=== PATIENT | female | born 1965 | race Caucasian/White ===

== ENCOUNTER 2017-01-09 22:24 | Emergency (ER) | payer MEDICARE, OTHER ==
[~2017-01-09] VITALS: Ht 165.1 cm; Wt 65.9 kg
[~2017-01-09 22:24] MED LIST: BACL10TA PO
[2017-01-09] MEDS ORDERED: KETOROLAC TROMETHAMINE 30 MG/ML VIAL IM ONE (23:15)
[2017-01-09 23:38] VITALS: BP 158/82
== END 2017-01-09 23:39 | disposition home or self-care (01) ==
LOC: EMS 22:26
DX: K02.9 Dental caries, unspecified (principal); M25.551 Pain in right hip; G89.29 Other chronic pain; F12.90 Cannabis use, unspecified, uncomplicated; F19.90 Other psychoactive substance use, unspecified, uncomplicated; F17.210 Nicotine dependence, cigarettes, uncomplicated; Z88.6 Allergy status to analgesic agent
CPT/HCPCS: 96372; 99283; J1885

== ENCOUNTER 2017-06-25 13:53 | Inpatient (IN) | payer MEDICARE, MEDICAID ==
[~2017-06-25] VITALS: Ht 162.6 cm; Wt 63.8 kg
[2017-06-25 14:51] LABS: BASOPHILS # (AUTO) 0.08 K/uL (0.00-0.20); BASOPHILS % (AUTO) 0.8 % (0.0-2.0); EOSINOPHILS # (AUTO) 0.12 K/uL (0.00-0.70); EOSINOPHILS % (AUTO) 1.11 % (1.0-6.0); HEMATOCRIT 42.1 % (36-46); HEMOGLOBIN 13.7 g/dL (12.0-16.0); LYMPHOCYTES # (AUTO) 3.5 K/uL (1.0-4.8); LYMPHOCYTES % (AUTO) 33.1 % (22.0-44.0); MEAN CORPUSCULAR HEMOGLOBIN 29.4 pg (26.0-34.0); MEAN CORPUSCULAR HGB CONC 32.6 G/dL (31.0-37.0); MEAN CORPUSCULAR VOLUME 90 fL (80-100); MONOCYTES # (AUTO) 0.8 K/uL (0.1-1.0); MONOCYTES % (AUTO) 7.7 % (2.0-9.0); NEUTROPHILS % (AUTO) 57.3 % (40.0-70.0); PLATELET COUNT (AUTO) 443 K/uL (150-450); RED BLOOD CELL COUNT(AUTO) 4.68 MIL/uL (4.00-5.20); RED CELL DISTRIBUTION WIDTH 15.3 % (11.5-14.5); WHITE BLOOD COUNT (AUTO) 10.5 K/uL (4.5-11.0)
[2017-06-25 14:57] LABS: ANION GAP 11 mmol/L (8-16); CALCIUM, TOTAL 8.9 mg/dL (8.8-10.5); CARBON DIOXIDE 29 mmol/L (22-29); CHLORIDE 103 mmol/L (98-107); CREATININE 1.01 mg/dL (0.60-1.30); GLOMERULAR FILTR. RATE CALC 58 mL/min (>60); POTASSIUM 3.6 mmol/L (3.5-5.1); SODIUM SERUM 143 mmol/L (136-145); UREA NITROGEN, BLOOD 5 mg/dL (7-18)
[2017-06-25 15:03] LABS: ALANINE AMINOTRANSFERASE 19 U/L (12-78); ALBUMIN 3.1 g/dL (3.4-5.0); ASPARTATE AMINOTRANSFERASE 27 U/L (15-37); BILIRUBIN,TOTAL 0.4 mg/dL (0.1-1.0)
[2017-06-25] MEDS ORDERED: DiphenhydrAMINE HCL 50 MG/ML VIAL IM ONE (16:00)
[2017-06-25] MEDS ORDERED: LORazepam 2 MG/ML VIAL IM ONE (16:00)
[2017-06-25] MEDS ORDERED: HALOPERIDOL LACTATE 5 MG/ML VIAL IM ONE (16:00)
[2017-06-25] MEDS ORDERED: LORazepam 2 MG TABLET PO PRN (16:30)
[2017-06-25] MEDS ORDERED: ZOLPIDEM TARTRATE 10 MG TABLET PO PRN (16:30)
[2017-06-25] MEDS ORDERED: HALOPERIDOL 5 MG TABLET PO PRN (16:30)
[2017-06-25 19:05] VITALS: BP 147/95
[2017-06-26 07:45] LABS: THYROID STIMULATING HORMONE 0.66 uIU/mL (0.36-3.74)
[2017-06-26 08:04] VITALS: BP 146/80
[2017-06-26] MEDS ORDERED: PETROLATUM,WHITE 71 GM JELLY TP PRN (08:30)
[2017-06-26] MEDS ORDERED: BACITRACIN 28.4 GM OINTMENT TP PRN (08:30)
[2017-06-26] MEDS ORDERED: ACETAMINOPHEN 325 MG TABLET PO PRN (08:30)
[2017-06-26] MEDS ORDERED: ONDANSETRON HCL 4 MG TABLET PO PRN (08:30)
[2017-06-26] MEDS ORDERED: MAG HYDROX/AL HYDROX/SIMETH ES 30 ML SUSPENSION UDCUP PO PRN (08:30)
[2017-06-26] MEDS ORDERED: MAGNESIUM HYDROXIDE SUSPENSION 30 ML UDCUP PO PRN (08:30)
[2017-06-26] MEDS ORDERED: LOPERAMIDE HCL 2 MG CAPSULE PO PRN (08:30)
[2017-06-26] MEDS ORDERED: ALBUTEROL SULFATE HFA 90 MCG/PUFF 8 GM INHALER IH PRN (08:30)
[2017-06-26] MEDS ORDERED: BENZOCAINE/MENTHOL LOZENGE [8 LOZENGES/PACKET] MM PRN (08:45)
[2017-06-26 09:54] VITALS: BP 146/80
[2017-06-26 16:30] VITALS: BP 132/98
[2017-06-27] MEDS: RisperiDONE 2 MG TABLET PO SCH ×2 (09:00→17:00)
[2017-06-28] MEDS: RisperiDONE 2 MG TABLET PO SCH ×2 (07:59→16:27)
[2017-06-28] MEDS: CloNIDine HCL 0.1 MG TABLET PO PRN ×3 (07:59→16:09)
[2017-06-28 08:19] VITALS: BP 151/114
[2017-06-28 09:14] LABS: BASOPHILS # (AUTO) 0.03 K/uL (0.00-0.20); BASOPHILS % (AUTO) 0.3 % (0.0-2.0); EOSINOPHILS # (AUTO) 0.09 K/uL (0.00-0.70); EOSINOPHILS % (AUTO) 0.79 % (1.0-6.0); HEMATOCRIT 44.9 % (36-46); HEMOGLOBIN 14.5 g/dL (12.0-16.0); LYMPHOCYTES # (AUTO) 2.3 K/uL (1.0-4.8); LYMPHOCYTES % (AUTO) 19.4 % (22.0-44.0); MEAN CORPUSCULAR HEMOGLOBIN 28.8 pg (26.0-34.0); MEAN CORPUSCULAR HGB CONC 32.3 G/dL (31.0-37.0); MEAN CORPUSCULAR VOLUME 89 fL (80-100); MONOCYTES # (AUTO) 0.6 K/uL (0.1-1.0); NEUTROPHILS # (AUTO) 8.7 K/uL (1.8-7.7); NEUTROPHILS % (AUTO) 74.6 % (40.0-70.0); PLATELET COUNT (AUTO) 485 K/uL (150-450); RED BLOOD CELL COUNT(AUTO) 5.03 MIL/uL (4.00-5.20); RED CELL DISTRIBUTION WIDTH 15.8 % (11.5-14.5); WHITE BLOOD COUNT (AUTO) 11.6 K/uL (4.5-11.0)
[2017-06-28] MEDS: NICOTINE 21 MG/24 HOUR PATCH TD SCH (11:17)
[2017-06-28 11:23] VITALS: BP 156/119
[2017-06-28] MEDS: DICLOFENAC SODIUM 1% 100 GM GEL [2GM] TP PRN (11:34)
[2017-06-28 16:27] VITALS: BP 146/120
[2017-06-28 17:04] VITALS: BP 126/83
[2017-06-29] MEDS: RisperiDONE 2 MG TABLET PO SCH ×2 (08:25→17:00)
[2017-06-29] MEDS: NICOTINE 21 MG/24 HOUR PATCH TD SCH (08:25)
[2017-06-29 08:30] VITALS: BP 128/94
[2017-06-29] MEDS ORDERED: LISINOPRIL 5 MG TABLET PO SCH (13:00)
[2017-06-29] MEDS: DICLOFENAC SODIUM 1% 100 GM GEL [2GM] TP PRN (13:31)
[2017-06-29 16:12] VITALS: BP 145/82
[2017-06-29] MEDS: AMITRIPTYLINE HCL 25 MG TABLET PO SCH (21:26)
[2017-06-30 08:30] VITALS: BP 148/89
[2017-06-30] MEDS: NICOTINE 21 MG/24 HOUR PATCH TD SCH (08:36)
[2017-06-30] MEDS ORDERED: LISINOPRIL 10 MG TABLET PO SCH (09:00)
[2017-06-30] MEDS: RisperiDONE 2 MG TABLET PO SCH ×2 (09:00→16:12)
[2017-06-30] MEDS ORDERED: LISINOPRIL 5 MG TABLET PO ONE (09:00)
[2017-06-30 16:41] VITALS: BP 151/99
[2017-06-30] MEDS: DICLOFENAC SODIUM 1% 100 GM GEL [2GM] TP PRN (18:45)
[2017-06-30] MEDS: AMITRIPTYLINE HCL 25 MG TABLET PO SCH (20:30)
[2017-07-01 08:04] VITALS: BP 125/96
[2017-07-01] MEDS: LISINOPRIL 10 MG TABLET PO SCH (08:15)
[2017-07-01] MEDS: NICOTINE 21 MG/24 HOUR PATCH TD SCH (08:17)
[2017-07-01] MEDS: RisperiDONE 2 MG TABLET PO SCH ×2 (08:18→17:00)
[2017-07-01] MEDS ORDERED: HALOPERIDOL LACTATE 5 MG/ML VIAL IM ONE (10:45)
[2017-07-01] MEDS ORDERED: DiphenhydrAMINE HCL 50 MG/ML VIAL IM ONE (10:45)
[2017-07-01] MEDS ORDERED: LORazepam 2 MG/ML VIAL IM ONE (10:45)
[2017-07-01] MEDS: AMITRIPTYLINE HCL 25 MG TABLET PO SCH (21:00)
[2017-07-02] MEDS: IBUPROFEN 600 MG TABLET PO PRN ×2 (00:46→09:54)
[2017-07-02] MEDS: AMITRIPTYLINE HCL 25 MG TABLET PO SCH (00:47)
[2017-07-02] MEDS: RisperiDONE 2 MG TABLET PO SCH ×2 (09:00→09:10)
[2017-07-02] MEDS: LISINOPRIL 10 MG TABLET PO SCH (09:10)
[2017-07-02] MEDS: NICOTINE 21 MG/24 HOUR PATCH TD SCH (09:10)
[2017-07-02 10:03] VITALS: BP 123/88
[2017-07-02 11:03] VITALS: BP 149/91
[2017-07-02] MEDS ORDERED: AMIT25TA9 PO (12:39)
[2017-07-02] MEDS ORDERED: RISP2 PO (12:39)
[2017-07-02] MEDS ORDERED: LISI-661 PO (12:48)
[2017-07-02 13:08] VITALS: BP 149/91
== END 2017-07-02 15:00 | disposition home or self-care (01) | DRG 885 ==
LOC: EEVIPCON 13:55 → EMS 13:55 → 3EC 17:46
PROVIDERS: ADMIT Psychiatry & Neurology Psychiatry; ATTEND Psychiatry & Neurology Psychiatry
DX: F20.0 Paranoid schizophrenia (principal); F15.20 Other stimulant dependence, uncomplicated; I10 Essential (primary) hypertension; F17.210 Nicotine dependence, cigarettes, uncomplicated; N93.8 Other specified abnormal uterine and vaginal bleeding; F12.20 Cannabis dependence, uncomplicated; J44.9 Chronic obstructive pulmonary disease, unspecified; M54.5 Low back pain; Z59.0 Homelessness; Z88.8 Allergy status to other drugs, medicaments and biological substances; Z71.6 Tobacco abuse counseling
CPT/HCPCS: 84436; 84443; 96372; 99285; G0480; J1200; J1630; J2060; J3535

== ENCOUNTER 2017-10-07 10:33 | Emergency (ER) | payer MEDICARE, OTHER ==
[~2017-10-07] VITALS: Ht 162.6 cm; Wt 68.2 kg
[~2017-10-07 10:33] MED LIST changes: +AMIT25TA9 PO; -BACL10TA PO; +LISI-661 PO; +RISP2 PO
[2017-10-07 10:57] LABS: BASOPHILS % (AUTO) 0.4 % (0.0-2.0); EOSINOPHILS % (AUTO) 1.1 % (1.0-6.0); HEMATOCRIT 43.7 % (36-46); HEMOGLOBIN 14.8 g/dL (12.0-16.0); LYMPHOCYTES # (AUTO) 3.6 K/uL (1.0-4.8); LYMPHOCYTES % (AUTO) 25.7 % (22.0-44.0); MEAN CORPUSCULAR HEMOGLOBIN 30.4 pg (26.0-34.0); MEAN CORPUSCULAR HGB CONC 33.9 G/dL (31.0-37.0); MEAN CORPUSCULAR VOLUME 89 fL (80-100); NEUTROPHILS # (AUTO) 9.2 K/uL (1.8-7.7); NEUTROPHILS % (AUTO) 65.8 % (40.0-70.0); PLATELET COUNT (AUTO) 543 K/uL (150-450); RED BLOOD CELL COUNT(AUTO) 4.88 MIL/uL (4.00-5.20); RED CELL DISTRIBUTION WIDTH 15.4 % (11.5-14.5)
[2017-10-07 11:07] LABS: ANION GAP 8 mmol/L (8-16); CALCIUM, TOTAL 9.3 mg/dL (8.8-10.5); CARBON DIOXIDE 28 mmol/L (22-29); CHLORIDE 102 mmol/L (98-107); CREATININE 1.14 mg/dL (0.60-1.30); GLOMERULAR FILTR. RATE CALC 50 mL/min (>60); POTASSIUM 3.4 mmol/L (3.5-5.1); SODIUM SERUM 138 mmol/L (136-145); UREA NITROGEN, BLOOD 12 mg/dL (7-18)
[2017-10-07 11:14] LABS: ALANINE AMINOTRANSFERASE 21 U/L (12-78); ALBUMIN 3.7 g/dL (3.4-5.0); ASPARTATE AMINOTRANSFERASE 15 U/L (15-37); BILIRUBIN,TOTAL 0.6 mg/dL (0.1-1.0); TOTAL PROTEIN, SERUM 7.9 g/dL (6.4-8.2)
[2017-10-07 14:33] VITALS: BP 139/81
== END 2017-10-07 14:36 | disposition home or self-care (01) ==
LOC: EMS 10:34
DX: M25.511 Pain in right shoulder (principal); F15.10 Other stimulant abuse, uncomplicated; F31.9 Bipolar disorder, unspecified; F17.210 Nicotine dependence, cigarettes, uncomplicated; F12.90 Cannabis use, unspecified, uncomplicated; F19.90 Other psychoactive substance use, unspecified, uncomplicated; Z88.8 Allergy status to other drugs, medicaments and biological substances; Z59.0 Homelessness
CPT/HCPCS: 36415; 80053; 80307; 85025; 99285; G0480

== ENCOUNTER 2024-09-01 11:59 | Inpatient (IN) | payer MEDICAID, MEDICARE, OTHER ==
[~2024-09-01] VITALS: Ht 162.6 cm; Wt 55.8 kg
[~2024-09-01 11:59] MED LIST changes: +AMIT25TA10 PO; -AMIT25TA9 PO; -LISI-661 PO; +LISI-893 PO; -RISP2 PO; +RISP2TAB45 PO
[2024-09-01 14:08] LABS: BASOPHILS % (AUTO) 0.5 % (0.0-2.0); EOSINOPHILS % (AUTO) 0.6 % (1.0-6.0); HEMATOCRIT 41.6 % (36-46); HEMOGLOBIN 13.7 g/dL (12.0-16.0); LYMPHOCYTES # (AUTO) 2.2 K/uL (1.0-4.8); LYMPHOCYTES % (AUTO) 15.8 % (22.0-44.0); MEAN CORPUSCULAR HGB CONC 32.8 G/dL (31.0-37.0); MEAN CORPUSCULAR VOLUME 88 fL (80-100); MONOCYTES # (AUTO) 0.9 K/uL (0.1-1.0); MONOCYTES % (AUTO) 6.7 % (2.0-9.0); NEUTROPHILS # (AUTO) 10.6 K/uL (1.8-7.7); NEUTROPHILS % (AUTO) 76.4 % (40.0-70.0); PLATELET COUNT (AUTO) 378 K/uL (150-450); RED BLOOD CELL COUNT(AUTO) 4.72 MIL/uL (4.00-5.20); RED CELL DISTRIBUTION WIDTH 16.3 % (11.5-14.5); WHITE BLOOD COUNT (AUTO) 13.9 K/uL (4.5-11.0)
[2024-09-01 14:09] LABS: COVID AG,FIA SOURCE NASAL SWAB
[2024-09-01] MEDS ORDERED: LORazepam 2 MG TABLET PO PRN (14:15)
[2024-09-01] MEDS ORDERED: HALOPERIDOL 5 MG TABLET PO PRN (14:15)
[2024-09-01 14:16] LABS: ANION GAP 11 mmol/L (8-16); CALCIUM, TOTAL 9.3 mg/dL (8.8-10.5); CARBON DIOXIDE 24 mmol/L (22-29); CHLORIDE 100 mmol/L (98-107); CREATININE 1.73 mg/dL (0.60-1.30); GLOMERULAR FILTR. RATE CALC 30 mL/min (>60); GLUCOSE,RANDOM 98 mg/dL (70-110); POTASSIUM 3.7 mmol/L (3.5-5.1); SODIUM SERUM 135 mmol/L (136-145); UREA NITROGEN, BLOOD 36 mg/dL (7-18)
[2024-09-01 14:19] LABS: ALCOHOL, BLOOD (SERUM) < 3 mg/dL (0-10)
[2024-09-01 14:27] LABS: SARS-COV2 (COVID) ANTIGEN,FIA Negative (Negative)
[2024-09-01] MEDS ORDERED: FERR325T27 PO (14:35)
[2024-09-01] MEDS ORDERED: METO-325 PO (14:35)
[2024-09-01] MEDS ORDERED: NIFE-46 PO (14:35)
[2024-09-01 16:37] VITALS: O2SAT 97
[2024-09-01 18:00] VITALS: BP 199/110; PULSE 98; RESP 18; TEMP 97; O2SAT 98
[2024-09-01] MEDS: NIFEdipine 60 MG ER TABLET PO SCH (18:00)
[2024-09-01] MEDS: METOPROLOL SUCCINATE 50 MG ER TABLET PO SCH (18:00)
[2024-09-01] MEDS: LISINOPRIL 10 MG TABLET PO SCH (18:55)
[2024-09-01] MEDS ORDERED: BENZOCAINE/MENTHOL LOZENGE PO PRN (19:00)
[2024-09-01] MEDS ORDERED: MAG HYDROX/ALUMINUM HYD/SIMETH ES 30 ML SUSPENSION UDCUP PO PRN (19:00)
[2024-09-01] MEDS ORDERED: PETROLATUM,WHITE 28 GM JELLY TP PRN (19:00)
[2024-09-01] MEDS ORDERED: OMEPRAZOLE 20 MG CAPSULE PO PRN (19:00)
[2024-09-01] MEDS ORDERED: MAGNESIUM HYDROXIDE SUSPENSION 30 ML UDCUP PO PRN (19:00)
[2024-09-01] MEDS ORDERED: BACITRACIN 28 GM OINTMENT TP PRN (19:00)
[2024-09-01] MEDS ORDERED: ACETAMINOPHEN 325 MG TABLET PO PRN (19:00)
[2024-09-01] MEDS ORDERED: ALBUTEROL SULFATE HFA 90 MCG/PUFF 8 GM INHALER IH PRN (19:00)
[2024-09-01] MEDS ORDERED: ONDANSETRON 4 MG TABLET PO PRN (19:00)
[2024-09-01] MEDS ORDERED: LOPERAMIDE HCL 2 MG CAPSULE PO PRN (19:00)
[2024-09-01] MEDS: IBUPROFEN 600 MG TABLET PO PRN (19:13)
[2024-09-01] MEDS: CloNIDine HCL 0.1 MG TABLET PO PRN (19:30)
[2024-09-01 20:13] VITALS: RESP 17
[2024-09-01 20:17] VITALS: BP 143/97; PULSE 94; RESP 18; TEMP 97.2; O2SAT 98
[2024-09-01 21:01] VITALS: BP 143/97; PULSE 95; RESP 18; TEMP 97.2; O2SAT 96
[2024-09-02 08:12] VITALS: BP 131/80; PULSE 82; RESP 16; TEMP 98; O2SAT 98
[2024-09-02 14:19] VITALS: BP 102/64; PULSE 67
[2024-09-02] MEDS: RisperiDONE 2 MG TABLET PO SCH (17:18)
[2024-09-02 20:28] VITALS: BP 114/68; PULSE 62; RESP 17; TEMP 98.4; O2SAT 96
[2024-09-03] MEDS: NICOTINE 7 MG/24 HOUR PATCH TD SCH (08:07)
[2024-09-03 08:54] VITALS: BP 125/72; PULSE 68; RESP 16; TEMP 96.6; O2SAT 95
[2024-09-03 09:08] LABS: BASOPHILS % (AUTO) 0.3 % (0.0-2.0); EOSINOPHILS % (AUTO) 6.2 % (1.0-6.0); HEMATOCRIT 37.7 % (36-46); HEMOGLOBIN 12.3 g/dL (12.0-16.0); LYMPHOCYTES # (AUTO) 1.8 K/uL (1.0-4.8); LYMPHOCYTES % (AUTO) 22.5 % (22.0-44.0); MEAN CORPUSCULAR HEMOGLOBIN 29.2 pg (26.0-34.0); MEAN CORPUSCULAR HGB CONC 32.8 G/dL (31.0-37.0); MEAN CORPUSCULAR VOLUME 89 fL (80-100); MONOCYTES # (AUTO) 0.6 K/uL (0.1-1.0); MONOCYTES % (AUTO) 7.2 % (2.0-9.0); NEUTROPHILS # (AUTO) 5.1 K/uL (1.8-7.7); NEUTROPHILS % (AUTO) 63.8 % (40.0-70.0); PLATELET COUNT (AUTO) 359 K/uL (150-450); RED BLOOD CELL COUNT(AUTO) 4.22 MIL/uL (4.00-5.20); RED CELL DISTRIBUTION WIDTH 16.5 % (11.5-14.5); WHITE BLOOD COUNT (AUTO) 7.9 K/uL (4.5-11.0)
[2024-09-03 09:30] LABS: ALBUMIN 2.5 g/dL (3.4-5.0); BILIRUBIN,TOTAL 0.5 mg/dL (0.1-1.0); CALCIUM, TOTAL 8.7 mg/dL (8.8-10.5); CREATININE 1.96 mg/dL (0.60-1.30); POTASSIUM 3.9 mmol/L (3.5-5.1); TOTAL PROTEIN, SERUM 6.6 g/dL (6.4-8.2)
[2024-09-03] MEDS: DOCUSATE SODIUM 100 MG CAPSULE PO PRN (11:19)
[2024-09-03 20:20] VITALS: BP 155/93; PULSE 84; RESP 16; TEMP 97.3; O2SAT 96
[2024-09-04 09:41] LABS: CHOL/HDL RATIO 2.7 (3.9-5.7); FREE T4 (FREE THYROXINE) 1.29 ng/dL (0.76-1.46); THYROID STIMULATING HORMONE 1.16 uIU/mL (0.36-3.74)
[2024-09-04 10:15] VITALS: BP 159/83; PULSE 60; RESP 18; TEMP 96.8; O2SAT 99
[2024-09-04 22:53] VITALS: RESP 18
[2024-09-05] VITALS (8 sets, daily range): BP systolic 147–184; BP diastolic 90–106; PULSE 65–89; RESP 17–18; TEMP 97.4–98.4; O2SAT 97
[2024-09-05 09:07] LABS: CALCIUM, TOTAL 8.8 mg/dL (8.8-10.5); CHOL/HDL RATIO 3.4 (3.9-5.7); CREATININE 1.43 mg/dL (0.60-1.30); FREE T4 (FREE THYROXINE) 1.13 ng/dL (0.76-1.46); THYROID STIMULATING HORMONE 0.8 uIU/mL (0.36-3.74)
[2024-09-05 09:16] LABS: POTASSIUM 4.3 mmol/L (3.5-5.1)
[2024-09-06 08:26] VITALS: BP 143/98; PULSE 66; RESP 16; TEMP 96.9; O2SAT 98
[2024-09-06 11:22] LABS: CALCIUM, TOTAL 9.7 mg/dL (8.8-10.5); CREATININE 1.3 mg/dL (0.60-1.30); POTASSIUM 4.3 mmol/L (3.5-5.1)
[2024-09-06 21:07] VITALS: BP 133/92; PULSE 73; RESP 18; TEMP 97.3; O2SAT 96
[2024-09-07 10:36] VITALS: BP 151/97; PULSE 67; RESP 18; TEMP 97.4; O2SAT 96
[2024-09-07 13:00] VITALS: BP 129/76; RESP 18; O2SAT 97
[2024-09-07] MEDS: ZOLPIDEM TARTRATE 10 MG TABLET PO PRN (20:10)
[2024-09-07 20:32] VITALS: BP 149/90; PULSE 74; RESP 18; TEMP 96.1; O2SAT 98
[2024-09-08 08:40] VITALS: BP 144/96; PULSE 82; RESP 16; TEMP 97.6; O2SAT 96
[2024-09-08 22:45] VITALS: RESP 18
[2024-09-08 23:22] VITALS: BP 144/84; PULSE 68; RESP 16; TEMP 97.2; O2SAT 98
[2024-09-09 08:20] VITALS: BP 134/87; PULSE 91; RESP 16; TEMP 96.9; O2SAT 97
[2024-09-09 23:02] VITALS: BP 155/91; PULSE 72; RESP 16; TEMP 96.7; O2SAT 95
[2024-09-10 08:40] VITALS: BP 130/84; PULSE 78; RESP 17; TEMP 97; O2SAT 98
== END 2024-09-10 22:31 | disposition short-term general hospital (02) | DRG 750 ==
LOC: EMS 11:59 → B3A 15:27 → UNDOADMIN 15:40 → B3A 18:18
PROVIDERS: ADMIT Psychiatry & Neurology Psychiatry; ATTEND Psychiatry & Neurology Psychiatry
DX: F20.9 Schizophrenia, unspecified (principal); F12.10 Cannabis abuse, uncomplicated; F15.10 Other stimulant abuse, uncomplicated; F17.200 Nicotine dependence, unspecified, uncomplicated; Z20.822 Contact with and (suspected) exposure to COVID-19; J44.9 Chronic obstructive pulmonary disease, unspecified; M54.50 Low back pain, unspecified; I10 Essential (primary) hypertension; Z88.8 Allergy status to other drugs, medicaments and biological substances
CPT/HCPCS: 71045; 80048; 80053; 80061; 82728; 84439; 84443; 85025; 99285; G0480; 36415-L1; 36415-TC

== ENCOUNTER 2024-09-10 16:08 | Inpatient (IN) | payer MEDICAID, OTHER ==
[~2024-09-10] VITALS: Ht 162.6 cm; Wt 55.8 kg
[~2024-09-10 16:08] MED LIST changes: +FERR325T27 PO; +METO-325 PO; +NIFE-46 PO
[2024-09-10 19:11] LABS: BASOPHILS % (AUTO) 0.8 % (0.0-2.0); EOSINOPHILS % (AUTO) 3.5 % (1.0-6.0); HEMATOCRIT 43.7 % (36-46); HEMOGLOBIN 14.4 g/dL (12.0-16.0); LYMPHOCYTES # (AUTO) 2.8 K/uL (1.0-4.8); LYMPHOCYTES % (AUTO) 27.5 % (22.0-44.0); MEAN CORPUSCULAR HEMOGLOBIN 29.3 pg (26.0-34.0); MEAN CORPUSCULAR HGB CONC 32.9 G/dL (31.0-37.0); MEAN CORPUSCULAR VOLUME 89 fL (80-100); MONOCYTES # (AUTO) 0.8 K/uL (0.1-1.0); MONOCYTES % (AUTO) 7.8 % (2.0-9.0); NEUTROPHILS # (AUTO) 6.2 K/uL (1.8-7.7); NEUTROPHILS % (AUTO) 60.4 % (40.0-70.0); PLATELET COUNT (AUTO) 461 K/uL (150-450); RED CELL DISTRIBUTION WIDTH 16.6 % (11.5-14.5); WHITE BLOOD COUNT (AUTO) 10.3 K/uL (4.5-11.0)
[2024-09-10 19:30] LABS: CALCIUM, TOTAL 9.2 mg/dL (8.8-10.5); CREATININE 1.63 mg/dL (0.60-1.30); POTASSIUM 3.9 mmol/L (3.5-5.1)
[2024-09-10 19:45] LABS: TROPONIN I-HIGH SENSITIVITY 8 ng/L (<51)
[2024-09-10] MEDS: FLUCONAZOLE 150 MG TABLET PO ONE (21:02)
[2024-09-10] MEDS: NYSTATIN 500,000 UNITS/5 ML SUSPENSION UDCUP PO ONE (21:02)
[2024-09-10] MEDS ORDERED: BISACODYL 10 MG RECTAL RECTAL SUPPOSITORY PR PRN (22:00)
[2024-09-10] MEDS ORDERED: ONDANSETRON HCL 4 MG/2 ML VIAL IVP PRN (22:00)
[2024-09-10] MEDS ORDERED: ACETAMINOPHEN 325 MG TABLET PO PRN (22:00)
[2024-09-10] MEDS ORDERED: MORPHINE SULFATE 2 MG/ML SYRINGE IVP PRN (22:00)
[2024-09-10] MEDS: SODIUM CHLORIDE 0.9% 1,000 ML IV ONE (23:04)
[2024-09-10] MEDS: HEPARIN SODIUM,PORCINE 5,000 UNITS/ML VIAL SQ SCH (23:05)
[2024-09-11 01:07] VITALS: BP 109/60; PULSE 69; RESP 18; TEMP 97.9; O2SAT 96
[2024-09-11 04:40] VITALS: BP 112/66; PULSE 74; RESP 18; TEMP 98; O2SAT 96
[2024-09-11 07:51] VITALS: BP 113/66; PULSE 68; RESP 18; TEMP 98.1; O2SAT 92
[2024-09-11] MEDS: PANTOPRAZOLE SODIUM 40 MG DR TABLET PO SCH (08:36)
[2024-09-11] MEDS: DOCUSATE SODIUM 100 MG CAPSULE PO SCH (08:36)
[2024-09-11] MEDS: RisperiDONE 2 MG TABLET PO SCH (08:37)
[2024-09-11] MEDS: METOPROLOL SUCCINATE 50 MG ER TABLET PO SCH (09:00)
[2024-09-11] MEDS: NIFEdipine 60 MG ER TABLET PO SCH (09:00)
[2024-09-11 09:23] LABS: BASOPHILS % (AUTO) 0.7 % (0.0-2.0); EOSINOPHILS % (AUTO) 5.1 % (1.0-6.0); HEMATOCRIT 39.4 % (36-46); LYMPHOCYTES # (AUTO) 1.8 K/uL (1.0-4.8); LYMPHOCYTES % (AUTO) 23.5 % (22.0-44.0); MEAN CORPUSCULAR HEMOGLOBIN 29.3 pg (26.0-34.0); MEAN CORPUSCULAR HGB CONC 33.1 G/dL (31.0-37.0); MEAN CORPUSCULAR VOLUME 89 fL (80-100); MONOCYTES # (AUTO) 0.6 K/uL (0.1-1.0); MONOCYTES % (AUTO) 8.2 % (2.0-9.0); NEUTROPHILS # (AUTO) 4.9 K/uL (1.8-7.7); NEUTROPHILS % (AUTO) 62.5 % (40.0-70.0); PLATELET COUNT (AUTO) 409 K/uL (150-450); RED BLOOD CELL COUNT(AUTO) 4.44 MIL/uL (4.00-5.20); RED CELL DISTRIBUTION WIDTH 16.2 % (11.5-14.5); WHITE BLOOD COUNT (AUTO) 7.8 K/uL (4.5-11.0)
[2024-09-11 09:31] LABS: CREATININE 1.34 mg/dL (0.60-1.30); POTASSIUM 4.1 mmol/L (3.5-5.1)
[2024-09-11 15:13] VITALS: BP 126/78; PULSE 74; RESP 18; TEMP 98.6; O2SAT 97
[2024-09-11] MEDS: MAALOX/LIDOCAINE/NYSTATIN SUSP 5 ML ORAL.SYG PO SCH (16:18)
[2024-09-11 19:10] VITALS: BP 128/88; PULSE 84; RESP 18; TEMP 98.4; O2SAT 95
[2024-09-12 04:37] VITALS: BP 138/90; PULSE 70; RESP 18; TEMP 98; O2SAT 95
[2024-09-12 07:06] VITALS: BP 134/88; PULSE 74; RESP 18; TEMP 98.2; O2SAT 96
[2024-09-12 10:56] LABS: BASOPHILS % (AUTO) 0.7 % (0.0-2.0); EOSINOPHILS % (AUTO) 4.9 % (1.0-6.0); HEMATOCRIT 38.2 % (36-46); HEMOGLOBIN 12.4 g/dL (12.0-16.0); LYMPHOCYTES # (AUTO) 2.1 K/uL (1.0-4.8); LYMPHOCYTES % (AUTO) 26.3 % (22.0-44.0); MEAN CORPUSCULAR HEMOGLOBIN 28.8 pg (26.0-34.0); MEAN CORPUSCULAR HGB CONC 32.5 G/dL (31.0-37.0); MEAN CORPUSCULAR VOLUME 89 fL (80-100); MONOCYTES # (AUTO) 0.5 K/uL (0.1-1.0); MONOCYTES % (AUTO) 6.6 % (2.0-9.0); NEUTROPHILS % (AUTO) 61.5 % (40.0-70.0); PLATELET COUNT (AUTO) 372 K/uL (150-450); RED BLOOD CELL COUNT(AUTO) 4.31 MIL/uL (4.00-5.20); RED CELL DISTRIBUTION WIDTH 16.4 % (11.5-14.5); WHITE BLOOD COUNT (AUTO) 8.1 K/uL (4.5-11.0)
[2024-09-12 11:05] LABS: CALCIUM, TOTAL 8.8 mg/dL (8.8-10.5); CREATININE 1.47 mg/dL (0.60-1.30); POTASSIUM 4.3 mmol/L (3.5-5.1)
[2024-09-12] MEDS: DEXTROSE 5%-0.45% SODIUM CHL 1,000 ML IV ONE (13:57)
[2024-09-12 15:18] VITALS: BP 107/69; PULSE 85; RESP 18; TEMP 97.5; O2SAT 95
[2024-09-12 20:01] VITALS: BP 133/90; PULSE 77; RESP 20; TEMP 98.2; O2SAT 95
[2024-09-13 05:22] VITALS: BP 136/89; PULSE 74; RESP 20; TEMP 98.1; O2SAT 93
[2024-09-13 07:18] LABS: BASOPHILS % (AUTO) 0.6 % (0.0-2.0); EOSINOPHILS % (AUTO) 3.9 % (1.0-6.0); HEMATOCRIT 41.5 % (36-46); HEMOGLOBIN 13.8 g/dL (12.0-16.0); LYMPHOCYTES # (AUTO) 2.2 K/uL (1.0-4.8); LYMPHOCYTES % (AUTO) 20.9 % (22.0-44.0); MEAN CORPUSCULAR HEMOGLOBIN 29.4 pg (26.0-34.0); MEAN CORPUSCULAR HGB CONC 33.3 G/dL (31.0-37.0); MEAN CORPUSCULAR VOLUME 89 fL (80-100); MONOCYTES # (AUTO) 0.6 K/uL (0.1-1.0); NEUTROPHILS # (AUTO) 7.3 K/uL (1.8-7.7); NEUTROPHILS % (AUTO) 68.6 % (40.0-70.0); PLATELET COUNT (AUTO) 410 K/uL (150-450); RED BLOOD CELL COUNT(AUTO) 4.68 MIL/uL (4.00-5.20); RED CELL DISTRIBUTION WIDTH 16.4 % (11.5-14.5); WHITE BLOOD COUNT (AUTO) 10.7 K/uL (4.5-11.0)
[2024-09-13 07:29] LABS: CALCIUM, TOTAL 9.3 mg/dL (8.8-10.5); CREATININE 1.46 mg/dL (0.60-1.30); POTASSIUM 4.2 mmol/L (3.5-5.1)
[2024-09-13 08:08] VITALS: BP 147/84; PULSE 81; RESP 18; TEMP 98; O2SAT 95
[2024-09-13 16:16] VITALS: BP 157/79; PULSE 83; RESP 17; TEMP 97.9; O2SAT 94
[2024-09-13 20:15] VITALS: BP 139/79; PULSE 74; RESP 18; TEMP 97.8; O2SAT 95
[2024-09-14 04:20] VITALS: BP 142/98; PULSE 81; RESP 16; TEMP 98.4; O2SAT 96
[2024-09-14 08:27] VITALS: BP 159/108; PULSE 88; RESP 20; TEMP 97.7; O2SAT 94
[2024-09-14 20:00] VITALS: BP 146/95; PULSE 81; RESP 18; TEMP 98; O2SAT 96
[2024-09-15 04:09] VITALS: BP 132/75; PULSE 66; RESP 18; TEMP 97.8; O2SAT 95
[2024-09-15 08:03] VITALS: BP 148/91; PULSE 59; RESP 18; TEMP 97.7; O2SAT 95
[2024-09-15 09:29] VITALS: BP 130/96; PULSE 75; RESP 18; TEMP 97.7; O2SAT 95
[2024-09-15 16:44] VITALS: BP 143/86; PULSE 67; RESP 18; TEMP 97.8; O2SAT 95
[2024-09-15 20:53] VITALS: BP 135/90; PULSE 66; RESP 18; TEMP 98.3; O2SAT 95
[2024-09-16 03:37] VITALS: BP 131/81; PULSE 70; RESP 20; TEMP 98; O2SAT 95
[2024-09-16 07:57] VITALS: BP 149/104; PULSE 79; RESP 14; TEMP 98.6; O2SAT 95
[2024-09-16 19:38] VITALS: BP 123/84; PULSE 92; RESP 20; TEMP 98.2; O2SAT 94
[2024-09-16] MEDS: METOPROLOL TARTRATE 50 MG TABLET PO SCH (20:29)
[2024-09-16] MEDS: DOCUSATE SODIUM 100 MG/10 ML LIQUID UDCUP PO SCH (20:29)
[2024-09-17 04:16] VITALS: BP 117/75; PULSE 63; RESP 18; TEMP 97.6; O2SAT 93
[2024-09-17] MEDS: PANTOPRAZOLE SODIUM 40 MG/VIAL IVP SCH (08:57)
[2024-09-17] MEDS: HYDROCODONE/ACETAMINOPHEN 5-325 MG TABLET PO PRN (13:44)
[2024-09-17 15:22] VITALS: BP 147/79; PULSE 95; RESP 18; TEMP 98; O2SAT 95
[2024-09-17 19:41] VITALS: BP 119/89; PULSE 84; RESP 20; TEMP 98.1; O2SAT 100
[2024-09-17] MEDS: METOPROLOL TARTRATE 25 MG TABLET PO SCH (20:05)
[2024-09-18 05:34] VITALS: BP 127/89; PULSE 73; RESP 18; TEMP 98; O2SAT 95
[2024-09-18 07:15] VITALS: BP 134/88; PULSE 68; RESP 18; TEMP 97.6; O2SAT 96
[2024-09-18 09:01] LABS: COVID AG,FIA SOURCE NASAL SWAB
[2024-09-18 09:40] LABS: SARS-COV2 (COVID) ANTIGEN,FIA Negative (Negative)
[2024-09-18 14:31] VITALS: BP 118/77; PULSE 74; RESP 18; TEMP 97.6; O2SAT 98
[2024-09-18 20:43] VITALS: BP 165/62; PULSE 88; RESP 20; TEMP 98; O2SAT 94
[2024-09-18] MEDS: ZOLPIDEM TARTRATE 5 MG TABLET PO PRN (22:30)
[2024-09-19 00:14] VITALS: BP 126/84; PULSE 72; RESP 18; TEMP 97.9; O2SAT 95
[2024-09-19 02:12] VITALS: BP 124/77; PULSE 77; RESP 18; TEMP 98; O2SAT 96
[2024-09-19 08:00] VITALS: BP 120/78; PULSE 82; RESP 17; TEMP 98.1; O2SAT 95
[2024-09-19] MEDS: MAGNESIUM HYDROXIDE SUSPENSION 30 ML UDCUP PO PRN (15:48)
[2024-09-19 16:15] VITALS: BP 122/70; PULSE 84; RESP 19; TEMP 98; O2SAT 96
[2024-09-19 19:40] VITALS: BP 114/83; PULSE 95; RESP 18; TEMP 98; O2SAT 95
[2024-09-20 03:48] VITALS: BP 138/98; PULSE 86; RESP 20; TEMP 98.1; O2SAT 96
[2024-09-20 07:57] VITALS: BP 147/91; PULSE 90; RESP 18; TEMP 98.3; O2SAT 95
[2024-09-20 12:29] LABS: CALCIUM, TOTAL 9.7 mg/dL (8.8-10.5); CREATININE 1.7 mg/dL (0.60-1.30); POTASSIUM 4.9 mmol/L (3.5-5.1)
[2024-09-20 12:37] LABS: BASOPHILS % (AUTO) 0.5 % (0.0-2.0); EOSINOPHILS % (AUTO) 2.4 % (1.0-6.0); HEMATOCRIT 43.2 % (36-46); HEMOGLOBIN 14.4 g/dL (12.0-16.0); LYMPHOCYTES % (AUTO) 23.5 % (22.0-44.0); MEAN CORPUSCULAR HEMOGLOBIN 29.5 pg (26.0-34.0); MEAN CORPUSCULAR HGB CONC 33.3 G/dL (31.0-37.0); MEAN CORPUSCULAR VOLUME 89 fL (80-100); MONOCYTES # (AUTO) 0.7 K/uL (0.1-1.0); NEUTROPHILS # (AUTO) 5.6 K/uL (1.8-7.7); NEUTROPHILS % (AUTO) 65.6 % (40.0-70.0); PLATELET COUNT (AUTO) 450 K/uL (150-450); RED BLOOD CELL COUNT(AUTO) 4.87 MIL/uL (4.00-5.20); RED CELL DISTRIBUTION WIDTH 16.4 % (11.5-14.5); WHITE BLOOD COUNT (AUTO) 8.6 K/uL (4.5-11.0)
[2024-09-20 12:58] LABS: COVID AG,FIA SOURCE NASAL SWAB
[2024-09-20 14:15] LABS: SARS-COV2 (COVID) ANTIGEN,FIA Negative (Negative)
[2024-09-20] MEDS ORDERED: DOCU50LI40 PO (15:10)
[2024-09-20] MEDS ORDERED: PANT-31 PO (15:16)
[2024-09-20] MEDS ORDERED: MAGN-169 PO (15:16)
[2024-09-20] MEDS ORDERED: METO25 PO (15:16)
[2024-09-20] MEDS ORDERED: BISA10SU11 PR (15:16)
[2024-09-20] MEDS ORDERED: HEPA500018 SQ (15:16)
[2024-09-20] MEDS ORDERED: ACET-2247 PO (15:16)
[2024-09-20] MEDS ORDERED: DOCU-385 PO (15:25)
[2024-09-20 15:45] VITALS: BP 139/93; PULSE 95; RESP 17; TEMP 98.4; O2SAT 92
[2024-09-21] MEDS ORDERED: PANTOPRAZOLE SODIUM 40 MG DR TABLET PO SCH (09:00)
== END 2024-09-20 17:00 | DRG 115 ==
LOC: EMS 16:13 → EDH 21:03 → 4E 09-11 00:45
PROVIDERS: ADMIT Internal Medicine; ATTEND Internal Medicine
PROC: BD1BYZZ Fluoroscopy of Mouth/Oropharynx using Other Contrast (ICD-10-PCS; principal; 2024-09-14)
DX: B37.0 Candidal stomatitis (principal); N17.0 Acute kidney failure with tubular necrosis; E43 Unspecified severe protein-calorie malnutrition; Z20.822 Contact with and (suspected) exposure to COVID-19; Z68.21 Body mass index [BMI] 21.0-21.9, adult; I10 Essential (primary) hypertension; F15.10 Other stimulant abuse, uncomplicated; F25.9 Schizoaffective disorder, unspecified; F31.9 Bipolar disorder, unspecified; Z88.8 Allergy status to other drugs, medicaments and biological substances; Z87.891 Personal history of nicotine dependence; R62.7 Adult failure to thrive
CPT/HCPCS: 70450; 74230; 80048; 84484; 85025; 92526; 92610; 92611; 93005; 97116; 97162; 97166; 97530; 97535; 99285; C9113; G0378; J1644